=== PATIENT | female | born 1965 | race Hispanic/Latino ===

== ENCOUNTER → 2018-09-23 | Day surgery (SDC) | payer OTHER ==
[~2018-09-23] MED LIST: FENTANYL CITRATE/PF 100MCG/2 ML INJ ONE; IBUPROFEN200 MG PO; LIDOCAINE HCL 2% LOCAL INJ 5 ML SDV VIAL INJ ONE; METOPROLOL SUCC25 MG PO; MIDAZOLAM HCL 2 MG/2 ML VIAL ONE; PROPOFOL IV EMULSION 10 MG/ML 50 ML VIAL ONE
--- OUTSIDE RECORDS SUMMARY | 2018-09-23 06:20 | XMS REPORT | Continuity of Care Document ---
Author Author [facility] Interface Address Unknown Phone Unavailable Problems Problem Status Onset Date Classification Date Reported Comments Source Essential hypertension 06/01/2017 09/08/2017 [facility] Discharge Diagnosis: Essential hypertension 06/01/2017 06/04/2017 [facility] HIGH BLOOD PRESSURE Active 06/01/2017 [facility] Discharge Diagnosis: Hypokalemia 04/14/2017 04/17/2017 [facility] Discharge Diagnosis: Benign hypertension 04/14/2017 04/17/2017 [facility] HYPERTENSION Active 04/14/2017 [facility] Discharge Diagnosis: Abdominal pain in female 08/20/2016 08/23/2016 [facility] Discharge Diagnosis: Acute bilateral back pain 08/20/2016 08/23/2016 [facility] BACK PAIN Active 08/20/2016 [facility] Type 2 diabetes mellitus without complications 09/08/2017 [facility] Hypertension Active Problem 09/08/2017 [facility] Diabetes Active Problem 04/17/2017 [facility] Medications Medication Details Route Status Patient Instructions Ordering Provider Order Date Source Potassium Chloride 40 mEq, 2 tab, Route: PO, Drug form: ERTAB, ONCE, Dosing Weight 67.273, kg, Priority: STAT, Start date: 04/14/17 23:12:00 [employer], Stop date: 04/14/17 23:12:00 CSTNotes: (Same as: K-Dur 20) "Do Not Crush" With food and full glass of water Inactive 04/15/2017 [facility] Saline Flush 0.9% 10 mL, Route: IVP, Drug Form: INJ, Dosing Weight 67.273, kg, PRN, PRN Line Flush, Start date: 04/14/17 21:42:00 [employer] OPERATOR, Duration: 30 day, Stop date: 05/14/17 21:41:00 CSTNotes: (Same as: BD Posiflush) No Longer Active 04/15/2017 [facility] tramadol hydrochloride 50 MG Oral Tablet [Ultram] 50 mg=1 tab, PO, Q4H, PRN pain, X 3 day, # 20 tab, 0 Refill(s) Active 08/20/2016 [facility] Saline Flush 0.9% 10 mL, Route: IVP, Drug Form: INJ, Dosing Weight 67.273, kg, PRN, PRN Line Flush, Start date: 08/20/16 15:08:00 CDT, Duration: 30 day, Stop date: 09/19/16 15:07:00 CDTNotes: (Same as: BD Posiflush) Inactive 08/20/2016 [facility] Allergies, Adverse Reactions, Alerts Substance Category Reaction Severity Reaction type Status Date Reported Comments Source Immunizations Immunization Date Given Site Status Last Updated Comments Source Results Order Name Results Value Reference Range Date Interpretation Comments Source CARDIAC ENZYMES Total CK 60 unit/L 12 - 191 04/15/2017 [facility] CARDIAC ENZYMES Troponin-I null 0.00 - 0.40 04/15/2017 [facility] CARDIAC ENZYMES CK MB 0.7 ng/mL 0.5 - 3.6 04/15/2017 [facility] CARDIAC ENZYMES CK MB Index 1.2 0.0 - 2.5 04/15/2017 [facility] CHEM PANEL eGFR 100 mL/min/1.73m2 04/15/2017 Result Comment: The eGFR is calculated using the CKD-EPI formula. In most young, healthy individuals the eGFR will be >90 mL/min/1.73m2. The eGFR declines with age. An eGFR of 60-89 may be normal in some populations, particularly the elderly, for whom the CKD-EPI formula has not been extensively validated. Use of the eGFR is not recommended in the following populations: Individuals with unstable creatinine concentrations, including patients and those with serious co-morbid conditions. Patients with extremes in muscle mass or diet. The data above are obtained from the National Kidney Disease Education Program (NKDEP) which additionally recommends that when the eGFR is used in patients with extremes of body mass index for purposes of drug dosing, the eGFR should be multiplied by the estimated BMI. [facility] CHEM PANEL Potassium Lvl 3.4 meq/L 3.5 - 5.1 04/15/2017 [facility] CHEM PANEL Glucose Lvl 110 mg/dL 70 - 99 04/15/2017 [facility] CHEM PANEL BUN 13 mg/dL 7 - 22 04/15/2017 [facility] CHEM PANEL Creatinine Lvl 0.70 mg/dL 0.50 - 1.40 04/15/2017 [facility] CHEM PANEL Sodium Lvl 137 meq/L 135 - 145 04/15/2017 [facility] CHEM PANEL A/G Ratio 1.0 0.7 - 1.6 04/15/2017 [facility] CHEM PANEL AGAP 11.4 meq/L 10.0 - 20.0 04/15/2017 [facility] CHEM PANEL B/C Ratio 19 6 - 25 04/15/2017 [facility] CHEM PANEL Globulin 3.8 g/dL 2.7 - 4.2 04/15/2017 [facility] CHEM PANEL AST 20 unit/L 0 - 37 04/15/2017 [facility] CHEM PANEL Alk Phos 143 unit/L 39 - 136 04/15/2017 [facility] CHEM PANEL Bili Total 0.2 mg/dL 0.2 - 1.3 04/15/2017 [facility] CHEM PANEL ALT 39 unit/L 0 - 65 04/15/2017 [facility] CHEM PANEL Albumin Lvl 3.7 g/dL 3.5 - 5.0 04/15/2017 [facility] CHEM PANEL CO2 25 meq/L 24 - 32 04/15/2017 [facility] CHEM PANEL Calcium Lvl 8.9 mg/dL 8.5 - 10.5 04/15/2017 [facility] CHEM PANEL Total Protein 7.5 g/dL 6.4 - 8.4 04/15/2017 [facility] CHEM PANEL Chloride Lvl 104 meq/L 95 - 109 04/15/2017 [facility] HEMATOLOGY WBC 10.4 K/CMM 3.7 - 10.4 04/15/2017 [facility] HEMATOLOGY RBC 4.55 M/CMM 4.20 - 5.40 04/15/2017 [facility] HEMATOLOGY Hgb 13.9 g/dL 12.0 - 16.0 04/15/2017 [facility] HEMATOLOGY Hct 41.1 % 36.0 - 48.0 04/15/2017 [facility] HEMATOLOGY MCV 90.2 fL 80.0 - 98.0 04/15/2017 [facility] HEMATOLOGY MCH 30.5 pg 27.0 - 31.0 04/15/2017 [facility] HEMATOLOGY MCHC 33.8 g/dL 32.0 - 36.0 04/15/2017 [facility] HEMATOLOGY Platelet 187 K/CMM 133 - 450 04/15/2017 [facility] HEMATOLOGY MPV 9.6 fL 7.4 - 10.4 04/15/2017 [facility] HEMATOLOGY RDW 13.9 % 11.5 - 14.5 04/15/2017 [facility] HEMATOLOGY Lymphocytes 23.0 % 20.0 - 40.0 04/15/2017 [facility] HEMATOLOGY Monocytes 7.3 % 2.0 - 12.0 04/15/2017 [facility] HEMATOLOGY Monocytes # 0.8 K/CMM 0.0 - 0.8 04/15/2017 [facility] HEMATOLOGY Segs-Bands # 7.1 K/CMM 1.5 - 8.1 04/15/2017 [facility] HEMATOLOGY Eosinophils 0.9 % 0.0 - 4.0 04/15/2017 [facility] HEMATOLOGY Basophils 0.6 % 0.0 - 1.0 04/15/2017 [facility] HEMATOLOGY Lymphocytes # 2.4 K/CMM 1.0 - 5.5 04/15/2017 [facility] HEMATOLOGY Eosinophils # 0.1 K/CMM 0.0 - 0.5 04/15/2017 [facility] HEMATOLOGY Basophils # 0.1 K/CMM 0.0 - 0.2 04/15/2017 [facility] HEMATOLOGY Segs 68.2 % 45.0 - 75.0 04/15/2017 [facility] URINE AND STOOL UA Urobilinogen <=1.0 mg/dL 0.1 - 1.0 04/15/2017 [facility] URINE AND STOOL UA Color Colorless 04/15/2017 [facility] URINE AND STOOL UA Bacteria Occasional /HPF None Seen /HPF 04/15/2017 [facility] URINE AND STOOL UA Mucus Few /LPF None Seen /LPF 04/15/2017 [facility] URINE AND STOOL UA Leuk Est Negative (04/14/17 10:10 PM) Negative 04/15/2017 [facility] URINE AND STOOL UA Blood Negative (04/14/17 10:10 PM) Negative 04/15/2017 [facility] URINE AND STOOL UA Nitrite Negative (04/14/17 10:10 PM) Negative 04/15/2017 [facility] URINE AND STOOL UA Turbidity Clear (04/14/17 10:10 PM) Clear 04/15/2017 [facility] URINE AND STOOL UA Glucose Negative mg/dL Negative mg/dL 04/15/2017 [facility] URINE AND STOOL UA Ketones Negative mg/dL Negative mg/dL 04/15/2017 [facility] URINE AND STOOL UA Bili Negative *NA* (04/14/17 10:10 PM) Negative 04/15/2017 [facility] URINE AND STOOL UA Sq Epi Occasional /LPF Few /LPF 04/15/2017 [facility] URINE AND STOOL UA pH 7.0 5.0 - 8.0 04/15/2017 [facility] URINE AND STOOL UA Protein Negative mg/dL Negative mg/dL 04/15/2017 [facility] URINE AND STOOL UA Spec Grav 1.003 <=1.030 04/15/2017 [facility] Chest 1view DX Chest 1view DX Clinical Indication: - palpitations, HTN. Comparison: None. TECHNIQUE: AP 1 view chest radiograph was performed. FINDINGS: The cardiac silhouette is borderline in size. The pulmonary vasculature is normal in caliber. The aorta is unremarkable. There is no focal airspace consolidation, pleural effusion, or pneumothorax. There is no acute osseous abnormality. IMPRESSION: No definitive acute airspace disease. SL: [id number] 04/14/2017 - - Read by: Russell Hall MD Dictated Date/time: 04/14/17 22:13 Electronically Signed by: Russell Hall MD 04/14/17 22:14 FINAL REPORT [facility] CHEM PANEL Lipase Lvl 169 unit/L 73 - 393 08/20/2016 [facility] CHEM PANEL Globulin 3.6 g/dL 2.7 - 4.2 08/20/2016 [facility] CHEM PANEL B/C Ratio 16 6 - 25 08/20/2016 [facility] CHEM PANEL AGAP 12.8 meq/L 10.0 - 20.0 08/20/2016 [facility] CHEM PANEL A/G Ratio 1.0 0.7 - 1.6 08/20/2016 [facility] CHEM PANEL eGFR 86 mL/min/1.73m2 08/20/2016 Result Comment: The eGFR is calculated using the CKD-EPI formula. In most young, healthy individuals the eGFR will be >90 mL/min/1.73m2. The eGFR declines with age. An eGFR of 60-89 may be normal in some populations, particularly the elderly, for whom the CKD-EPI formula has not been extensively validated. Use of the eGFR is not recommended in the following populations: Individuals with unstable creatinine concentrations, including patients and those with serious co-morbid conditions. Patients with extremes in muscle mass or diet. The data above are obtained from the National Kidney Disease Education Program (NKDEP) which additionally recommends that when the eGFR is used in patients with extremes of body mass index for purposes of drug dosing, the eGFR should be multiplied by the estimated BMI. [facility] CHEM PANEL Alk Phos 116 unit/L 39 - 136 08/20/2016 [facility] CHEM PANEL AST 22 unit/L 0 - 37 08/20/2016 [facility] CHEM PANEL Potassium Lvl 3.8 meq/L 3.5 - 5.1 08/20/2016 [facility] CHEM PANEL ALT 38 unit/L 0 - 65 08/20/2016 [facility] CHEM PANEL Albumin Lvl 3.7 g/dL 3.5 - 5.0 08/20/2016 [facility] CHEM PANEL Total Protein 7.3 g/dL 6.4 - 8.4 08/20/2016 [facility] CHEM PANEL Creatinine Lvl 0.79 mg/dL 0.50 - 1.40 08/20/2016 [facility] CHEM PANEL BUN 13 mg/dL 7 - 22 08/20/2016 [facility] CHEM PANEL Bili Total 0.4 mg/dL 0.2 - 1.3 08/20/2016 [facility] CHEM PANEL Calcium Lvl 8.4 mg/dL 8.5 - 10.5 08/20/2016 [facility] CHEM PANEL CO2 25 meq/L 24 - 32 08/20/2016 [facility] CHEM PANEL Chloride Lvl 105 meq/L 95 - 109 08/20/2016 [facility] CHEM PANEL Sodium Lvl 139 meq/L 135 - 145 08/20/2016 [facility] CHEM PANEL Glucose Lvl 119 mg/dL 70 - 99 08/20/2016 [facility] HEMATOLOGY MPV 10.1 fL 7.4 - 10.4 08/20/2016 [facility] [place][note 2] Platelet 176 K/CMM 133 - 450 08/20/2016 [facility] [place][note 2] Hct 40.3 % 36.0 - 48.0 08/20/2016 [facility] [place][note 2] MCH 30.2 pg 27.0 - 31.0 08/20/2016 [facility] HEMATOLOGY WBC 9.0 K/CMM 3.7 - 10.4 08/20/2016 [facility] HEMATOLOGY MCV 89.9 fL 80.0 - 98.0 08/20/2016 [facility] HEMATOLOGY Hgb 13.6 g/dL 12.0 - 16.0 08/20/2016 [facility] HEMATOLOGY RBC 4.48 M/CMM 4.20 - 5.40 08/20/2016 [facility] [place][note 2] RDW 14.0 % 11.5 - 14.5 08/20/2016 [facility] [place][note 2] MCHC 33.6 g/dL 32.0 - 36.0 08/20/2016 [facility] HEMATOLOGY Eosinophils # 0.2 K/CMM 0.0 - 0.5 08/20/2016 [facility] HEMATOLOGY Basophils 0.3 % 0.0 - 1.0 08/20/2016 [facility] HEMATOLOGY Segs-Bands # 6.1 K/CMM 1.5 - 8.1 08/20/2016 [facility] HEMATOLOGY Monocytes # 0.5 K/CMM 0.0 - 0.8 08/20/2016 [facility] HEMATOLOGY Lymphocytes # 2.2 K/CMM 1.0 - 5.5 08/20/2016 [facility] HEMATOLOGY Segs 67.3 % 45.0 - 75.0 08/20/2016 [facility] HEMATOLOGY Eosinophils 1.8 % 0.0 - 4.0 08/20/2016 [facility] HEMATOLOGY Monocytes 6.0 % 2.0 - 12.0 08/20/2016 [facility] HEMATOLOGY Lymphocytes 24.6 % 20.0 - 40.0 08/20/2016 [facility] URINE AND STOOL UA Color Ltyellow 08/20/2016 [facility] URINE AND STOOL UA Urobilinogen <=1.0 mg/dL 0.1 - 1.0 08/20/2016 [facility] URINE AND STOOL UA Bili Negative *NA* (08/20/16 2:28 PM) Negative 08/20/2016 [facility] URINE AND STOOL UA Blood Negative (08/20/16 2:28 PM) Negative 08/20/2016 [facility] URINE AND STOOL UA Protein Negative mg/dL Negative mg/dL 08/20/2016 [facility] URINE AND STOOL UA Glucose Negative mg/dL Negative mg/dL 08/20/2016 [facility] URINE AND STOOL UA Ketones Negative mg/dL Negative mg/dL 08/20/2016 [facility] URINE AND STOOL UA Sq Epi Occasional /LPF Few /LPF 08/20/2016 [facility] URINE AND STOOL UA WBC null 0 - 5 08/20/2016 [facility] URINE AND STOOL UA RBC 1 /HPF 0 - 2 08/20/2016 [facility] URINE AND STOOL UA Bacteria Few /HPF None Seen /HPF 08/20/2016 [facility] URINE AND STOOL UA Nitrite Negative (08/20/16 2:28 PM) Negative 08/20/2016 [facility] URINE AND STOOL UA Leuk Est Negative (08/20/16 2:28 PM) Negative 08/20/2016 [facility] URINE AND STOOL UA pH 7.0 5.0 - 8.0 08/20/2016 [facility] URINE AND STOOL UA Spec Grav 1.013 <=1.030 08/20/2016 [facility] URINE AND STOOL UA Turbidity Clear (08/20/16 2:28 PM) Clear 08/20/2016 [facility] ED Abdomen/Pelvis IV contrast only CT ED Abdomen/Pelvis IV contrast only CT Study: ED Abdomen/Pelvis IV contrast only CT Clinical Indication: Abdominal pain, acute; pt states, "i have been having pain in my lower back for a week that radiates to lower abd area." denies n/v/d. c.o painful urination denies PMH or trauma to lower back; LLQ pain/H/O hyst - 100cc omni iv; dlp: 1716.30 Comparison: None TECHNIQUE: Multiple axial CT images of the abdomen and pelvis were acquired following the administration of intravenous contrast. Sagittal and coronal reformatted images were performed. CT Radiation Dose DLP 1716.30 mGy-cm FINDINGS: 1 mm and 2 mm nodules in the visualized right middle lobe are seen. The liver, gallbladder, pancreas, spleen, kidneys, and adrenal glands have a normal CT appearance. No intrahepatic or extrahepatic biliary duct dilatation is seen. Urinary bladder is well-distended. Patient is status post prior hysterectomy. The visualized hollow viscera and appendix are normal in appearance. No intraperitoneal free air, free fluid, or pathologic adenopathy is seen. Degenerative changes of the lumbar spine are seen. Superficial soft tissues are unremarkable. IMPRESSION: 1. No acute intra-abdominal/pelvic abnormality. SL: [id number] 08/20/2016 - - Read by: Ryan Mccann MD Dictated Date/time: 08/20/16 17:43 Electronically Signed by: Ryan Mccann MD 08/20/16 17:45 FINAL REPORT [facility] Vital Signs Vital Sign Value Date Comments Source Temperature Oral (F) 97.7 F 06/02/2017 [facility] Heart Rate 91 06/02/2017 [facility] Systolic (mm Hg) 161 06/02/2017 [facility] Respitory Rate 20 06/02/2017 [facility] Diastolic (mm Hg) 89 06/02/2017 [facility] BMI Calculated 28.4 06/02/2017 [facility] Weight 68.182 06/02/2017 [facility] Systolic (mm Hg) 166 06/02/2017 [facility] Diastolic (mm Hg) 96 06/02/2017 [facility] Temperature Oral (F) 97.7 F 06/02/2017 [facility] Height 154.94 cm 06/02/2017 [facility] Heart Rate 97 06/02/2017 [facility] Respitory Rate 20 06/02/2017 [facility] Systolic (mm Hg) 137 04/15/2017 [facility] Diastolic (mm Hg) 71 04/15/2017 [facility] Temperature Oral (F) 97.5 F 04/15/2017 [facility] Respitory Rate 15 04/15/2017 [facility] Systolic (mm Hg) 145 04/15/2017 [facility] Diastolic (mm Hg) 80 04/15/2017 [facility] Respitory Rate 19 04/15/2017 [facility] Respitory Rate 16 04/15/2017 [facility] Systolic (mm Hg) 174 04/15/2017 [facility] Diastolic (mm Hg) 92 04/15/2017 [facility] Temperature Oral (F) 97.5 F 04/15/2017 [facility] Heart Rate 91 04/15/2017 [facility] Weight 67.273 04/15/2017 [facility] BMI Calculated 28.02 04/15/2017 [facility] Height 154.94 cm 04/15/2017 [facility] Temperature Oral (F) 97.3 F 04/15/2017 [facility] Heart Rate 103 04/15/2017 [facility] Systolic (mm Hg) 155 08/20/2016 [facility] Diastolic (mm Hg) 88 08/20/2016 [facility] Temperature Oral (F) 98.0 F 08/20/2016 [facility] Respitory Rate 18 08/20/2016 [facility] Heart Rate 78 08/20/2016 [facility] Weight 67.273 08/20/2016 [facility] BMI Calculated 28.96 08/20/2016 [facility] Heart Rate 82 08/20/2016 [facility] Systolic (mm Hg) 154 08/20/2016 [facility] Diastolic (mm Hg) 81 08/20/2016 [facility] Height 152.4 cm 08/20/2016 [facility] Temperature Oral (F) 98.1 F 08/20/2016 [facility] Respitory Rate 16 08/20/2016 [facility] Encounters Location Location Details Encounter Type Encounter Number Reason For Visit Attending Provider ADM Date DC Date Status Source [facility] [id number] Carlos England 08/20/2016 08/20/2016 [facility] [id number] Glendy Fairchild 04/15/2017 04/15/2017 [facility] [id number] Ciara Perezooqi 06/02/2017 06/02/2017 [facility] Procedures Procedure Code Date Perfomer Comments Source Abdominal hysterectomy [id number] [facility] section [id number] [facility]
--- OUTSIDE RECORDS SUMMARY | 2018-09-23 06:20 | XMS REPORT | Summary of Care ---
Author Author [facility] Organization [facility] Address Unknown Phone Unavailable Encounter SARI Ojeda(KENISHA) [id number] Date(s): 08/20/16 - 08/20/16 [facility] [address] [place] [address]- [phone] Discharge Diagnosis: Abdominal pain in female Discharge Diagnosis: Acute bilateral back pain Discharge Disposition: Home or Self Care Attending Physician: Carlos England MD Vital Signs Most recent to 1 2 oldest [Reference Range]: Height 152.4 cm (08/20/16 12:56 PM) Temperature Oral 98.0 DegF 98.1 DegF [96.4-99.1 DegF] (08/20/16 6:07 PM) (08/20/16 12:56 PM) Blood Pressure 155/88 mmHg 154/81 mmHg [90-140/60-90 mmHg] *HI* *HI* (08/20/16 6:07 PM) (08/20/16 12:56 PM) Respiratory Rate 18 BRMIN 16 BRMIN [14-20 BRMIN] (08/20/16 6:07 PM) (08/20/16 12:56 PM) Peripheral Pulse 78 bpm 82 bpm Rate [60-100 bpm] (08/20/16 6:07 PM) (08/20/16 12:56 PM) Weight 67.273 kg (08/20/16 12:56 PM) Body Mass Index 28.96 m2 (08/20/16 12:56 PM) Problem List No data available for this section Allergies, Adverse Reactions, Alerts Substance Reaction Severity Status NKDA Active Medications Saline Flush 0.9% 10 mL, Route: IVP, Drug Form: INJ, Dosing Weight 67.273, kg, PRN, PRN Line Flush , Start date: 08/20/16 15:08:00 CDT, Duration: 30 day, Stop date: 09/19/16 15:07 :00 CDT Notes: (Same as: BD Posiflush) Start Date: 08/20/16 Stop Date: 08/20/16 Status: Discontinued Ultram 50 mg oral tablet 50 mg=1 tab, PO, Q4H, PRN pain, X 3 day, # 20 tab, 0 Refill(s) Start Date: 08/20/16 Stop Date: 08/23/16 Status: Ordered Results ELECTROLYTES Most recent to 1 oldest [Reference Range]: Sodium Lvl [135-145 139 mEq/L mEq/L] (08/20/16 3:31 PM) Potassium Lvl 3.8 mEq/L [3.5-5.1 mEq/L] (08/20/16 3:31 PM) Chloride Lvl [95-109 105 mEq/L mEq/L] (08/20/16 3:31 PM) CO2 [24-32 mEq/L] 25 mEq/L (08/20/16 3:31 PM) AGAP [10.0-20.0 12.8 mEq/L mEq/L] (08/20/16 3:31 PM) CHEM PANEL Most recent to 1 oldest [Reference Range]: Creatinine Lvl 0.79 mg/dL [0.50-1.40 mg/dL] (08/20/16 3:31 PM) eGFR 86 mL/min/1.73m2 1 *NA* (08/20/16 3:31 PM) BUN [7-22 mg/dL] 13 mg/dL (08/20/16 3:31 PM) B/C Ratio [6-25] 16 (08/20/16 3:31 PM) Glucose Lvl [70-99 119 mg/dL mg/dL] *HI* (08/20/16 3:31 PM) Total Protein 7.3 g/dL [6.4-8.4 g/dL] (08/20/16 3:31 PM) Albumin Lvl [3.5-5.0 3.7 g/dL g/dL] (08/20/16 3:31 PM) Globulin [2.7-4.2 3.6 g/dL g/dL] (08/20/16 3:31 PM) A/G Ratio [0.7-1.6] 1.0 (08/20/16 3:31 PM) Calcium Lvl 8.4 mg/dL [8.5-10.5 mg/dL] *LOW* (08/20/16 3:31 PM) ALT [0-65 unit/L] 38 unit/L (08/20/16 3:31 PM) AST [0-37 unit/L] 22 unit/L (08/20/16 3:31 PM) Alk Phos [39-136 116 unit/L unit/L] (08/20/16 3:31 PM) Bili Total [0.2-1.3 0.4 mg/dL mg/dL] (08/20/16 3:31 PM) Lipase Lvl [73-393 169 unit/L unit/L] (08/20/16 3:31 PM) 1Result Comment: The eGFR is calculated using the [...] from the National Kidney Disease Education Program ( NKDEP) which additionally recommends that when the eGFR is used in patients with extremes of body mass index for purposes of drug dosing, the eGFR should be mul tiplied by the estimated BMI. URINE AND STOOL Most recent to 1 oldest [Reference Range]: UA Turbidity [Clear] Clear (08/20/16 2:28 PM) UA Color Ltyellow *NA* (08/20/16 2:28 PM) UA pH [5.0-8.0] 7.0 (08/20/16 2:28 PM) UA Spec Grav 1.013 [<=1.030] (08/20/16 2:28 PM) UA Glucose [Negative Negative mg/dL mg/dL] *NA* (08/20/16 2:28 PM) UA Blood [Negative] Negative (08/20/16 2:28 PM) UA Ketones [Negative Negative mg/dL mg/dL] *NA* (08/20/16 2:28 PM) UA Protein [Negative Negative mg/dL mg/dL] (08/20/16 2:28 PM) UA Urobilinogen <=1.0 mg/dL [0.1-1.0 mg/dL] *NA* (08/20/16 2:28 PM) UA Bili [Negative] Negative *NA* (08/20/16 2:28 PM) UA Leuk Est Negative [Negative] (08/20/16 2:28 PM) UA Nitrite Negative [Negative] (08/20/16 2:28 PM) UA WBC [0-5 /HPF] <1 /HPF (08/20/16 2:28 PM) UA RBC [0-2 /HPF] 1 /HPF (08/20/16 2:28 PM) UA Bacteria [None Few /HPF Seen /HPF] *NA* (08/20/16 2:28 PM) UA Sq Epi [Few /LPF] Occasional /LPF *NA* (08/20/16 2:28 PM) HEMATOLOGY Most recent to 1 oldest [Reference Range]: WBC [3.7-10.4 K/CMM] 9.0 K/CMM (08/20/16 3:31 PM) RBC [4.20-5.40 4.48 M/CMM M/CMM] (08/20/16 3:31 PM) Hgb [12.0-16.0 g/dL] 13.6 g/dL (08/20/16 3:31 PM) Hct [36.0-48.0 %] 40.3 % (08/20/16 3:31 PM) MCV [80.0-98.0 fL] 89.9 fL (08/20/16 3:31 PM) MCH [27.0-31.0 pg] 30.2 pg (08/20/16 3:31 PM) MCHC [32.0-36.0 33.6 g/dL g/dL] (08/20/16 3:31 PM) RDW [11.5-14.5 %] 14.0 % (08/20/16 3:31 PM) Platelet [133-450 176 K/CMM K/CMM] (08/20/16 3:31 PM) MPV [7.4-10.4 fL] 10.1 fL (08/20/16 3:31 PM) Segs [45.0-75.0 %] 67.3 % (08/20/16 3:31 PM) Lymphocytes 24.6 % [20.0-40.0 %] (08/20/16 3:31 PM) Monocytes [2.0-12.0 6.0 % %] (08/20/16 3:31 PM) Eosinophils [0.0-4.0 1.8 % %] (08/20/16 3:31 PM) Basophils [0.0-1.0 0.3 % %] (08/20/16 3:31 PM) Segs-Bands # 6.1 K/CMM [1.5-8.1 K/CMM] (08/20/16 3:31 PM) Lymphocytes # 2.2 K/CMM [1.0-5.5 K/CMM] (08/20/16 3:31 PM) Monocytes # [0.0-0.8 0.5 K/CMM K/CMM] (08/20/16 3:31 PM) Eosinophils # 0.2 K/CMM [0.0-0.5 K/CMM] (08/20/16 3:31 PM) Immunizations No data available for this section Procedures Procedure Date Related Diagnosis Body Site Abdominal hysterectomy section Social History Social History Type Response Smoking Status Never smoker; Exposure to Tobacco Smoke None; Cigarette Smoking Last 365 Days No; Reg Smoking Cessation Counseling No Assessment and Plan No data available for this section
--- OUTSIDE RECORDS SUMMARY | 2018-09-23 06:20 | XMS REPORT | Summary of Care ---
Author Author [facility] Organization [facility] Address Unknown Phone Unavailable Encounter HQ Lynette(FIN) [id number] Date(s): 06/01/17 - 06/01/17 [facility] [address] [place] [address]- Encounter Diagnosis Essential hypertension (Discharge Diagnosis) - 06/01/17 Essential (primary) hypertension (Final) - 06/09/17 Type 2 diabetes mellitus without complications (Final) - Discharge Disposition: Home or Self Care Attending Physician: Ciara Mcnamara DO Vital Signs Most recent to 1 2 oldest [Reference Range]: Height 154.94 cm (06/01/17 10:54 PM) Temperature Oral 97.7 DegF 97.7 DegF [96.4-99.1 DegF] (06/01/17 11:29 PM) (06/01/17 10:54 PM) Blood Pressure 166/96 mmHg [90-140/60-90 mmHg] *HI* (06/01/17 10:54 PM) Systolic Blood 161 mmHg Pressure [90-140 *HI* mmHg] (06/01/17 11:29 PM) Diastolic Blood 89 mmHg Pressure [60-90 (06/01/17 11:29 PM) mmHg] Respiratory Rate 20 BRMIN 20 BRMIN [14-20 BRMIN] (06/01/17 11:29 PM) (06/01/17 10:54 PM) Peripheral Pulse 91 bpm 97 bpm Rate [60-100 bpm] (06/01/17 11:29 PM) (06/01/17 10:54 PM) Weight 68.182 kg (06/01/17 10:54 PM) Body Mass Index 28.4 m2 (06/01/17 10:54 PM) Problem List Condition Effective Dates Status Health Status Informant Hypertension(Confirm Active ed) Allergies, Adverse Reactions, Alerts Substance Reaction Severity Status NKDA Active Medications No data available for this section Results No data available for this section Immunizations No data available for this section Procedures Procedure Date Related Diagnosis Body Site Status Abdominal hysterectomy Completed section Completed Social History Social History Type Response Smoking Status Cigarette Smoking Last 365 Days No; Reg Smoking Cessation Counseling No; Never smoker; Exposure to Tobacco Smoke None entered on: 06/01/17 Assessment and Plan No data available for this section
--- OUTSIDE RECORDS SUMMARY | 2018-09-23 06:20 | XMS REPORT | Summary of Care ---
Author Author [facility] Organization [facility] Address Unknown Phone Unavailable Encounter SARI Ojeda(KENISHA) [id number] Date(s): 04/14/17 - 04/14/17 [facility] [address] [place] [address]- [phone] Discharge Diagnosis: Hypokalemia Discharge Diagnosis: Benign hypertension Discharge Disposition: Home or Self Care Attending Physician: Glendy Fairchild MD Vital Signs 1 2 3 Most recent to oldest [Reference Range]: 154.94 cm (04/14/17 9:39 PM) Height 97.5 DegF (04/14/17 11:36 PM) 97.5 DegF (04/14/17 10:22 PM) 97.3 DegF (04/14/17 9:39 PM) Temperature Oral [96.4-99.1 DegF] 137/71 mmHg (04/14/17 11:36 PM) 145/80 mmHg *HI* (04/14/17 10:56 PM) Blood Pressure [90-140/60-90 mmHg] 174 mmHg *HI* (04/14/17 10:22 PM) Systolic Blood Pressure [90-140 mmHg] 92 mmHg *HI* (04/14/17 10:22 PM) Diastolic Blood Pressure [60-90 mmHg] 15 BRMIN (04/14/17 11:36 PM) 19 BRMIN (04/14/17 10:56 PM) 16 BRMIN (04/14/17 10:22 PM) Respiratory Rate [14-20 BRMIN] 91 bpm (04/14/17 10:22 PM) 103 bpm *HI* (04/14/17 9:39 PM) Peripheral Pulse Rate [60-100 bpm] 67.273 kg (04/14/17 9:39 PM) Weight 28.02 m2 (04/14/17 9:39 PM) Body Mass Index Problem List Condition Effective Dates Status Health Status Informant Diabetes(Confirmed) Active Hypertension(Confirm Active ed) Allergies, Adverse Reactions, Alerts Substance Reaction Severity Status NKDA Active Medications potassium chloride 40 mEq, 2 tab, Route: PO, Drug form: ERTAB, ONCE, Dosing Weight 67.273, kg, Prio rity: STAT, Start date: 04/14/17 23:12:00 LAUNDRY ATTENDANT, Stop date: 04/14/17 23:12:00 LAUNDRY ATTENDANT Notes: (Same as: K-Dur 20)"Do Not Crush" With food and full glass of water Start Date: 04/14/17 Stop Date: 04/14/17 Status: Completed Saline Flush 0.9% 10 mL, Route: IVP, Drug Form: INJ, Dosing Weight 67.273, kg, PRN, PRN Line Flush , Start date: 04/14/17 21:42:00 LAUNDRY ATTENDANT, Duration: 30 day, Stop date: 05/14/17 21:41 :00 LAUNDRY ATTENDANT Notes: (Same as: BD Posiflush) Start Date: 04/14/17 Stop Date: 04/15/17 Status: Discontinued Results ELECTROLYTES Most recent to 1 oldest [Reference Range]: Sodium Lvl [135-145 137 mEq/L mEq/L] (04/14/17 10:10 PM) Potassium Lvl 3.4 mEq/L [3.5-5.1 mEq/L] *LOW* (04/14/17 10:10 PM) Chloride Lvl [95-109 104 mEq/L mEq/L] (04/14/17 10:10 PM) CO2 [24-32 mEq/L] 25 mEq/L (04/14/17 10:10 PM) AGAP [10.0-20.0 11.4 mEq/L mEq/L] (04/14/17 10:10 PM) CHEM PANEL Most recent to 1 oldest [Reference Range]: Creatinine Lvl 0.70 mg/dL [0.50-1.40 mg/dL] (04/14/17 10:10 PM) eGFR 100 mL/min/1.73m2 1 *NA* (04/14/17 10:10 PM) BUN [7-22 mg/dL] 13 mg/dL (04/14/17 10:10 PM) B/C Ratio [6-25] 19 (04/14/17 10:10 PM) Glucose Lvl [70-99 110 mg/dL mg/dL] *HI* (04/14/17 10:10 PM) Total Protein 7.5 g/dL [6.4-8.4 g/dL] (04/14/17 10:10 PM) Albumin Lvl [3.5-5.0 3.7 g/dL g/dL] (04/14/17 10:10 PM) Globulin [2.7-4.2 3.8 g/dL g/dL] (04/14/17 10:10 PM) A/G Ratio [0.7-1.6] 1.0 (04/14/17 10:10 PM) Calcium Lvl 8.9 mg/dL [8.5-10.5 mg/dL] (04/14/17 10:10 PM) ALT [0-65 unit/L] 39 unit/L (04/14/17 10:10 PM) AST [0-37 unit/L] 20 unit/L (04/14/17 10:10 PM) Alk Phos [39-136 143 unit/L unit/L] *HI* (04/14/17 10:10 PM) Bili Total [0.2-1.3 0.2 mg/dL mg/dL] (04/14/17 10:10 PM) 1Result Comment: The eGFR is calculated [...] be mul tiplied by the estimated BMI. CARDIAC ENZYMES Most recent to 1 oldest [Reference Range]: Total CK [12-191 60 unit/L unit/L] (04/14/17 10:10 PM) CK MB [0.5-3.6 0.7 ng/mL ng/mL] (04/14/17 10:10 PM) CK MB Index 1.2 [0.0-2.5] (04/14/17 10:10 PM) Troponin-I <0.02 ng/mL [0.00-0.40 ng/mL] (04/14/17 10:10 PM) URINE AND STOOL Most recent to 1 oldest [Reference Range]: UA Turbidity [Clear] Clear (04/14/17 10:10 PM) UA Color Colorless *NA* (04/14/17 10:10 PM) UA pH [5.0-8.0] 7.0 (04/14/17 10:10 PM) UA Spec Grav 1.003 [<=1.030] (04/14/17 10:10 PM) UA Glucose [Negative Negative mg/dL mg/dL] *NA* (04/14/17 10:10 PM) UA Blood [Negative] Negative (04/14/17 10:10 PM) UA Ketones [Negative Negative mg/dL mg/dL] *NA* (04/14/17 10:10 PM) UA Protein [Negative Negative mg/dL mg/dL] (04/14/17 10:10 PM) UA Urobilinogen <=1.0 mg/dL [0.1-1.0 mg/dL] *NA* (04/14/17 10:10 PM) UA Bili [Negative] Negative *NA* (04/14/17 10:10 PM) UA Leuk Est Negative [Negative] (04/14/17 10:10 PM) UA Nitrite Negative [Negative] (04/14/17 10:10 PM) UA Bacteria [None Occasional /HPF Seen /HPF] *NA* (04/14/17 10:10 PM) UA Sq Epi [Few /LPF] Occasional /LPF *NA* (04/14/17 10:10 PM) UA Mucus [None Seen Few /LPF /LPF] *NA* (04/14/17 10:10 PM) HEMATOLOGY Most recent to 1 oldest [Reference Range]: WBC [3.7-10.4 K/CMM] 10.4 K/CMM (04/14/17 10:10 PM) RBC [4.20-5.40 4.55 M/CMM M/CMM] (04/14/17 10:10 PM) Hgb [12.0-16.0 g/dL] 13.9 g/dL (04/14/17 10:10 PM) Hct [36.0-48.0 %] 41.1 % (04/14/17 10:10 PM) MCV [80.0-98.0 fL] 90.2 fL (04/14/17 10:10 PM) MCH [27.0-31.0 pg] 30.5 pg (04/14/17 10:10 PM) MCHC [32.0-36.0 33.8 g/dL g/dL] (04/14/17 10:10 PM) RDW [11.5-14.5 %] 13.9 % (04/14/17 10:10 PM) Platelet [133-450 187 K/CMM K/CMM] (04/14/17 10:10 PM) MPV [7.4-10.4 fL] 9.6 fL (04/14/17 10:10 PM) Segs [45.0-75.0 %] 68.2 % (04/14/17 10:10 PM) Lymphocytes 23.0 % [20.0-40.0 %] (04/14/17 10:10 PM) Monocytes [2.0-12.0 7.3 % %] (04/14/17 10:10 PM) Eosinophils [0.0-4.0 0.9 % %] (04/14/17 10:10 PM) Basophils [0.0-1.0 0.6 % %] (04/14/17 10:10 PM) Segs-Bands # 7.1 K/CMM [1.5-8.1 K/CMM] (04/14/17 10:10 PM) Lymphocytes # 2.4 K/CMM [1.0-5.5 K/CMM] (04/14/17 10:10 PM) Monocytes # [0.0-0.8 0.8 K/CMM K/CMM] (04/14/17 10:10 PM) Eosinophils # 0.1 K/CMM [0.0-0.5 K/CMM] (04/14/17 10:10 PM) Basophils # [0.0-0.2 0.1 K/CMM K/CMM] (04/14/17 10:10 PM) Immunizations No data available for this section Procedures Procedure Date Related Diagnosis Body Site Abdominal hysterectomy section Social History Social History Type Response Smoking Status Never smoker; Exposure to Tobacco Smoke None; Cigarette Smoking Last 365 Days No; Reg Smoking Cessation Counseling No Assessment and Plan No data available for this section
--- OUTSIDE RECORDS SUMMARY | 2018-09-23 06:20 | XMS REPORT | Summary of Care ---
Author Author [facility] Organization [facility] Address Unknown Phone Unavailable Encounter SARI Ojeda(KENISHA) [id number] Date(s): 06/01/17 - 06/01/17 [facility] [address] [place] [address]- [phone] Discharge Diagnosis: Essential hypertension Discharge Disposition: Home or Self Care [...] Never smoker; Exposure to Tobacco Smoke None Assessment and Plan No data available for this section
[2018-09-23 09:55] VITALS: BP 145/80
== END | disposition home or self-care (01) ==
LOC: OR 06:17
PROVIDERS: ATTEND Internal Medicine Gastroenterology
DX: K29.70 Gastritis, unspecified, without bleeding (principal); K21.9 Gastro-esophageal reflux disease without esophagitis; K44.9 Diaphragmatic hernia without obstruction or gangrene; K64.8 Other hemorrhoids; Z71.3 Dietary counseling and surveillance; E73.9 Lactose intolerance, unspecified; E66.3 Overweight; I10 Essential (primary) hypertension; R00.1 Bradycardia, unspecified; F41.9 Anxiety disorder, unspecified; Z01.810 Encounter for preprocedural cardiovascular examination; Z68.28 Body mass index [BMI] 28.0-28.9, adult
CPT/HCPCS: 43239; 45378; 88305; 88312; 93005; J2001; J2250